=== PATIENT | female | born 1935 | race Caucasian/White ===

== ENCOUNTER 2019-11-26 17:50 | Inpatient (IN) | payer MEDICARE ==
[~2019-11-26 17:50] MED LIST: Iopamidol-370 76% 500 ML 1 ML ONE
[2019-11-26 18:38] LABS: #Basophils 0.1 thou/uL (0.0-0.2); #Eosinphils 0.4 thou/uL (0.0-0.7); #Lymphocytes 3.2 thou/uL (1.20-3.40); #Neutrophils 5.8 thou/uL (1.40-6.50); %Basophils 1.3 % (0.0-1.0); %Eosinophils 3.7 % (0.0-10.0); %Lymphocytes 30.6 % (21.0-51.0); %Monocytes 9.4 % (0.0-10.0); %Neutrophils 55.1 % (42.0-75.0); Hemoglobin 14.6 g/dL (12.0-16.0); Mean Corpuscular HGB CONC 33.7 g/dL (32.0-36.0); Mean Corpuscular Hemoglobin 28.2 pg (27.0-31.0); Mean Corpuscular Volume 83.5 fL (78.0-98.0); Mean Platelet Volume 9.2 fL (7.4-10.4); Platelet Count 270 thou/uL (130-400); RBC Distribution Width 13.6 % (11.5-14.5); Red Blood Cell (RBC) Count 5.17 mill/uL (4.20-5.40); White Blood Cell (WBC) Count 10.6 thou/uL (4.8-10.8)
[2019-11-26] MEDS ORDERED: Aspirin Chewable 81 MG TAB ONE (18:45)
[2019-11-26 18:56] LABS: ALT (SGPT) 8 U/L (8-55); AST (SGOT) 19 U/L (5-34); Albumin 4.3 g/dL (3.4-4.8); Alkaline Phosphatase 64 U/L (40-110); Anion Gap 15 mmol/L (10-20); BUN (Urea Nitrogen) 11 mg/dL (9.8-20.1); Bilirubin, Total 0.6 mg/dL (0.2-1.2); CK (CPK) 156 U/L (29-168); Calc. Creatinine Clearance 0 mL/min (70-130); Calcium 9.3 mg/dL (7.8-10.44); Carbon Dioxide 23 mmol/L (23-31); Chloride 107 mmol/L (98-107); Estimated GFR-MDRD 47; Globulin 3.7 g/dL (2.4-3.5); Glucose 183 mg/dL (83-110); Lipase 25 U/L (8-78); Potassium 4.5 mmol/L (3.5-5.1); Sodium 140 mmol/L (136-145)
--- NOTE | 2019-11-26 19:05 | RAD ---
XR Chest 1 View Portable History: Chest pain Comparison: None. Findings: Heart size is enlarged. Mild pulmonary venous congestion low-grade pulmonary edema. No pneu mothorax. No acute osseous abnormality. Impression: Mild decompensated congestive heart failure.
--- NOTE | 2019-11-26 21:29 | CT ---
CT Aortic Dissection Protocol History: Chest pain Comparison: Radiograph same day Findings: CT angiogram of the chest and abdomen performed after the intravenous ministration of contr ast. 3-D rendering provided. Mild ectasia of the distal transverse aorta measuring up to 2.4 cm. No aortic aneurysm or dissection. Small pleural effusions. Moderate pulmonary edema. No pneumothorax is appreciated although the lung a pices are not included on this protocol exam. No acute osseous abnormality. Celiac trunk and superior mesenteric arteries are patent. Inferior mese nteric artery is patent. Liver, spleen, pancreas, adrenal glands are unremarkable. Scattered parenchymal scarring of both kidn eys. Intraparenchymal 4 mm calculus inferior pole left kidney. Impression: 1. Decompensated congestive heart failure. 2. No aortic dissection. 3. Old right-sided rib fractures. 4. Faint edema within the pancreaticoduodenal groove likely third spacing and much less likely sequel ae of duodenitis or pancreatitis.
[2019-11-26] MEDS ORDERED: Furosemide 40 MG/4 ML VIAL ONE (21:41)
[2019-11-26] MEDS ORDERED: DOBUTamine 500 mg/250 ml 250 ML ONE (21:50)
[2019-11-26] MEDS ORDERED: Nitroglycerin 0.4 MG TAB 1 EACH ONE (21:52)
[2019-11-26] MEDS ORDERED: diphenhydrAMINE 50 MG CAP ONE (22:22)
[2019-11-26] MEDS ORDERED: diphenhydrAMINE 50 MG/ML VIAL ONE (22:23)
--- NOTE | 2019-11-26 22:35 | PDOC.HHP ---
Hospitalist HPI - History of Present Illness chest pain History of Present Illness: Case of an 84y/o female [facility] with pmhx of cad, hx of stroke, atrial fibrillation on eliquis, htn, hypothyroidism, dm and hx of breast ca who comes to hospital due to sob and chest pain. patient refers she was on her usual state of health until yesterday when she started with chest pain and dyspnea, she states took a beta hipolito and her symptoms improved but then again today she started with worsening symptoms for which she came to hospital for evaluation. patient refers her pains is 9/10 restrosternal of crushing quality and radiates to her back. also refers palpitations denies diaphoresis. Hospitalist ROS - Review of Systems All other systems reviewed; all pertinent +/- noted in HPI/Subj Hospitalist History - Past Surgical History Past Surgical History: reports: Appendectomy, Cholecystectomy, Hysterectomy, Tonsillectomy - Family History Family History: reports: cardiac disorder - Social History Smoking Status: Never smoker Alcohol: reports: None Drugs: reports: none - Exam General Appearance: NAD, awake alert Eye: PERRL, anicteric sclera ENT: normocephalic atraumatic, no oropharyngeal lesions Neck: supple, symmetric, no thyromegaly Heart: no murmur, normal peripheral pulses, irregular Respiratory: no wheezes, no ronchi, normal chest expansion, rales Gastrointestinal: soft, non-tender, non-distended, normal bowel sounds Extremities: no cyanosis, no clubbing, 1+ LE edema Skin: normal turgor, no lesions Neurological: cranial nerve grossly intact, normal sensation to touch Musculoskeletal: normal tone, normal strength, no muscle wasting Psychiatric: normal affect, normal behavior, A&O x 3 Hospitalist Results - Labs Result Diagrams: 11/26/19 18:11/26/19 18: Lab results: WBC 10.6 thou/uL (4.8-10.8) 11/26/19 18: Hgb 14.6 g/dL (12.0-16.0) 11/26/19 18: Hct 43.2 % (36.0-47.0) 11/26/19 18: MCV 83.5 fL (78.0-98.0) 11/26/19 18: Plt Count 270 thou/uL (130-400) 11/26/19 18: Neutrophils % 55.1 % (42.0-75.0) 11/26/19 18:27 Sodium 140 mmol/L (136-145) 11/26/19 18:27 Potassium 4.5 mmol/L (3.5-5.1) 11/26/19 18: Chloride 107 mmol/L (98-107) 11/26/19 18: Carbon Dioxide 23 mmol/L (23-31) 11/26/19 18:27 BUN 11 mg/dL (9.8-20.1) 11/26/19 18: Creatinine 1.12 mg/dL (0.6-1.1) H 11/26/19 18: Glucose 183 mg/dL (83-110) H 11/26/19 18: Calcium 9.3 mg/dL (7.8-10.44) 11/26/19 18: Total Bilirubin 0.6 mg/dL (0.2-1.2) 11/26/19 18: AST 19 U/L (5-34) 11/26/19 18: ALT 8 U/L (8-55) 11/26/19 18: Alkaline Phosphatase 64 U/L (40-110) 11/26/19 18: Creatine Kinase 156 U/L (29-168) 11/26/19 18: Troponin I Less than 0.010 ng/mL (< 0.028) 11/26/19 18: Serum Total Protein 8.0 g/dL (6.0-8.3) 11/26/19 18: Albumin 4.3 g/dL (3.4-4.8) 11/26/19 18: Lipase 25 U/L (8-78) 11/26/19 18:27 - Radiology Interpretation CT scan - chest Additional Comment: CT Aortic Dissection Protocol History: Chest pain Comparison: Radiograph same day Findings: CT angiogram of the chest and abdomen performed after the intravenous ministration of contr ast. 3-D rendering provided. Mild ectasia of the distal transverse aorta measuring up to 2.4 cm. No aortic aneurysm or dissection. Small pleural effusions. Moderate pulmonary edema. No pneumothorax is appreciated although the lung a pices are not included on this protocol exam. No acute osseous abnormality. Celiac trunk and superior mesenteric arteries are patent. Inferior mese nteric artery is patent. Liver, spleen, pancreas, adrenal glands are unremarkable. Scattered parenchymal scarring of both kidn eys. Intraparenchymal 4 mm calculus inferior pole left kidney. Impression: 1. Decompensated congestive heart failure. 2. No aortic dissection. 3. Old right-sided rib fractures. 4. Faint edema within the pancreaticoduodenal groove likely third spacing and much less likely sequel ae of duodenitis or pancreatitis. Hospitalist H&P A/P - Problem (1) Acute decompensated heart failure Code(s): I50.9 - HEART FAILURE, UNSPECIFIED Status: Acute (2) Atrial fibrillation with rapid ventricular response Code(s): I48.91 - UNSPECIFIED ATRIAL FIBRILLATION Status: Acute (3) Hypothyroidism Code(s): E03.9 - HYPOTHYROIDISM, UNSPECIFIED Status: Acute (4) Hx TIA/stroke w/o resid Code(s): Z86.73 - PRSNL HX OF TIA (TIA), AND CEREB INFRC W/O RESID DEFICITS Status: Acute (5) Diabetes Code(s): E11.9 - TYPE 2 DIABETES MELLITUS WITHOUT COMPLICATIONS Status: Acute (6) CAD (coronary artery disease) Code(s): I25.10 - ATHSCL HEART DISEASE OF [place] CORONARY ARTERY W/O ANG PCTRS Status: Acute (7) Respiratory failure with hypoxia Code(s): J96.91 - RESPIRATORY FAILURE, UNSPECIFIED WITH HYPOXIA Status: Acute - Plan Plan: 84y/o female who present with D chf with respiratory failure on bipap and afib in rvr D CHF - cxr and cta consistent with dchf - bnp not very high but patient was on visible dyspnea requiring bipap - started on dobutamine drip at the ED, will continue - troponin negative x2 - will continue beta hipolito - will hold acei due to borderline low b/p, start when more stable - icu admit - cardiology consulted - started on lasix 20mg iv q12, ;lasix naive -2 d echo atrial fibrillation - diltiazem iv given at the ED, now out of rvr - continue elliquis - cardiac monitoring - 2d echo - continue rate control with beta hipolito hypoxic respiratory failure - patient presented with decrease 02 and increased RR - started on bipap - electromechanical equipment tester consulted - secondary to d chf hypothyrodism - continue thyroxine - check tsh dm - acc+ ss htn -holding acei until more stable
[2019-11-26 23:00] LABS: Actual Bicarbonate (HCO3a) 22.4 mEq/L (22-28); Analyzer IN Cardio ER; CO2 Tension 41.4 mmHg (35.0-45.0); Calcium, Ionized (arterial) 1.22 mmol/L (1.12-1.30); Carboxyhemoglobin (COHb) 0.2 gm% (0.0-3.0); Hemoglobin (Hb) 14.6 g/dL (12.0-16.0); O2 Tension (PaO2), arterial 78.3 mmHg (> 60.0); Potassium - ABG Lab 4.17 mmol/L (3.70-5.30); pH, Arterial 7.35 (7.35-7.45)
[2019-11-26 23:01] LABS: Puncture Site LRA
[2019-11-26 23:24] LABS: Troponin I Less than 0.010 ng/mL (< 0.028)
[2019-11-26] MEDS ORDERED: HumaLOG 300 UNITS/3 ML VIAL SC PRN (23:50)
[2019-11-26] MEDS ORDERED: Dextrose 5% in Water 1,000 ML IV PRN (23:50)
[2019-11-26] MEDS ORDERED: Dextrose 50% Abboject 50 ML SYRINGE SLOW IVP PRN (23:50)
[2019-11-27 01:44] VITALS: BMI 28.0
[2019-11-27] MEDS ORDERED: DOBUTamine 500 mg/250 ml 500 MG in Premix Bag 1 BAG IVPB SCH (02:15)
[2019-11-27 02:25] LABS: #Basophils 0.1 thou/uL (0.0-0.2); #Eosinphils 0.2 thou/uL (0.0-0.7); #Monocytes 1.2 thou/uL (0.11-0.59); #Neutrophils 7.6 thou/uL (1.40-6.50); %Basophils 0.8 % (0.0-1.0); %Eosinophils 1.7 % (0.0-10.0); %Lymphocytes 24.7 % (21.0-51.0); %Monocytes 9.8 % (0.0-10.0); Hemoglobin 15.1 g/dL (12.0-16.0); Mean Corpuscular HGB CONC 31.9 g/dL (32.0-36.0); Mean Corpuscular Hemoglobin 26.3 pg (27.0-31.0); Mean Corpuscular Volume 82.4 fL (78.0-98.0); Mean Platelet Volume 8.9 fL (7.4-10.4); Platelet Count 260 thou/uL (130-400); RBC Distribution Width 13.6 % (11.5-14.5); Red Blood Cell (RBC) Count 5.77 mill/uL (4.20-5.40)
[2019-11-27 02:49] LABS: Troponin I 0.022 ng/mL (< 0.028)
[2019-11-27 03:09] LABS: ALT (SGPT) 8 U/L (8-55); AST (SGOT) 17 U/L (5-34); Albumin 4.3 g/dL (3.4-4.8); Alkaline Phosphatase 64 U/L (40-110); Anion Gap 19 mmol/L (10-20); BUN (Urea Nitrogen) 12 mg/dL (9.8-20.1); Bilirubin, Total 0.8 mg/dL (0.2-1.2); Calc. Creatinine Clearance 49 mL/min (70-130); Calcium 9.9 mg/dL (7.8-10.44); Carbon Dioxide 21 mmol/L (23-31); Chloride 104 mmol/L (98-107); Estimated GFR-MDRD 54; Globulin 3.8 g/dL (2.4-3.5); Glucose 154 mg/dL (83-110); Magnesium 2.6 mg/dL (1.6-2.6); Potassium 3.9 mmol/L (3.5-5.1); Protein, Total 8.1 g/dL (6.0-8.3); Sodium 140 mmol/L (136-145)
[2019-11-27] MEDS: Furosemide 20 MG/2 ML VIAL SLOW IVP SCH ×2 (06:38→15:19)
[2019-11-27] MEDS: Levothyroxine Sodium 88 MCG TAB PO SCH (06:38)
[2019-11-27] MEDS: Apixaban 5 MG TAB PO SCH ×2 (08:44→20:43)
--- NOTE | 2019-11-27 09:48 | CON ---
DATE OF CONSULTATION: HISTORY OF PRESENT ILLNESS: Radha Hernandez is an 84-year-old female from here [facility], who presented from the intermediate yesterday with chest pain and shortness of breath. She was found to be in rapid atrial fibrillation. In fact, she says she has been in and out of the hospital several times in [facility] for similar problem. She is now apparently on Dobutrex. Heart rate is 120 and regular, saturations are 90%, and respiratory rate of 18. She is not short of breath. She denies any prior history of pneumonia, asthma, or TB exposure. PAST MEDICAL HISTORY: Pertinent mainly for cardiac arrhythmias, atrial fibrillation, coronary artery disease status post stent, and hypertension. Previous apparently CVA and history of breast cancer. PAST SURGICAL HISTORY: Previous surgeries; lumpectomy, appendix, eye surgery, gallbladder surgery, cardiac stent, tonsils, and hysterectomy. ALLERGIES: IODINE AND PENICILLIN. MEDICATIONS: Home medicine; 1. Glipizide 5 .. 2. Sotalol 80. 3. Zestril 10. 4. Synthroid 88. 5. Eliquis 5. REVIEW OF SYSTEMS: Negative. PHYSICAL EXAMINATION: GENERAL: She is awake, alert, and responsive. VITAL SIGNS: Pulse 124, blood pressure 98/80, saturations are 90% on room air, and respiratory rate 22. CHEST: No wheezing. No crackles. CARDIAC: Normal S1 and S2. No gallops. ABDOMEN: Soft. NEUROLOGIC: Awake, alert, and responsive. LABORATORY DATA: White count 1200, H and H 15 and 47, and platelet count is normal. A pO2 of 78, pCO2 of . Lytes are normal. Renal function is normal. Glucose slightly elevated. BNP 360. She had a CT chest dissection protocol done, which showed older fractures. Evidence of maybe CHF. ASSESSMENT AND PLAN: 1. Carotid disease and supraventricular tachycardia. 2. Cardiomyopathy. 3. Hypothyroidism. 4. Hypertension, previous cerebrovascular accident, previous breast cancer, and hypothyroidism. Pulmonary gamble, await input from Cardiology. Pulmonary gamble, not much to add at this stage. She has small pleural effusion on her CT. Once she is stabilized cardiac gamble, she can be transferred out of the ICU. Pulmonary is going to follow while here. Consultation note 70 minutes, 50% direct patient care. Job ID: [id number]
[2019-11-27] MEDS: Sotalol HCl 80 MG TAB PO SCH ×2 (10:05→14:12)
[2019-11-27 14:14] VITALS: BP 102/58
--- NOTE | 2019-11-27 15:16 | PDOC.HOSPP ---
- Subjective Subjective: Patient was seen examined at bedside. She still had variable rate, hovering around 100-120. She is slightly hypotensive but overall improved. She is currently is on Dobutrex at 2.5 - Objective Vital Signs & Weight: Vital Signs (12 hours) Temp Pulse BP Pulse Ox 11/27/19 14:12 111 H 102/58 L 11/27/19 08:00 97.8 F 94 L 11/27/19 04:00 97.2 F L Weight Weight 153 lb 10.595 oz Most Recent Monitor Data Heart Rate from ECG 102 NIBP 115/82 NIBP BP-Mean 93 Respiration from ECG 17 SpO2 94 I&O: 11/26/19 11/27/19 11/28/19 06:59 06:59 06:59 Intake Total 130.1 240 Output Total 700 640 Balance -569.9 -400 Result Diagrams: 11/27/19 02:18 11/27/19 02:18 Additional Labs: Accuchecks 11/27/19 06:40 POC Glucose 136 H Radiology Reviewed by me: Yes EKG Reviewed by me: Yes Hospitalist ROS - Medication Medications: Active Medications Generic Name Dose Route Start Last Admin Trade Name Freq PRN Reason Stop Dose Admin Apixaban 5 mg 11/27/19 09:00 11/27/19 08:44 Apixaban 5 Mg Tab PO 5 mg BID LENI Administration Furosemide 20 mg 11/27/19 06:00 11/27/19 06:38 Furosemide 20 Mg/2 Ml Vial SLOW IVP 20 mg 0600,1400 LENI Administration Levothyroxine Sodium 88 mcg 11/27/19 06:00 11/27/19 06:38 Levothyroxine Sodium 88 Mcg Tab PO 88 mcg 0600 LENI Administration Sotalol HCl 80 mg 11/27/19 09:00 11/27/19 14:12 Sotalol Hcl 80 Mg Tab PO 80 mg BID LENI Administration - Exam General Appearance: NAD Eye: PERRL ENT: normocephalic atraumatic Neck: supple Heart: irregular Respiratory: rhonchi Gastrointestinal: soft Extremities: no cyanosis, 1+ LE edema Skin: normal turgor Neurological: cranial nerve grossly intact Musculoskeletal: normal tone Hosp A/P - Plan This is a pleasant 84 years ago female who has significant past medical history of CAD with status post PCI in 2004, history of CVA, paroxysmal atrial fib on Eliquis, hypertension hypothyroidism, remote histories of breast cancer, who presented to the ED with chest discomfort and worsening dyspnea. Acute hypoxic respiratory failure - secondary to decompensated heart failure --Patient require BiPAP in ED, she is now tolerating nasal cannula --Continue gentle IV diuresis as her blood pressure tolerate --Appreciate pulmonology input Acute on chronic heart failure, unknown type - decompensated d/t uncontrolled rate --Echo pending --cont IV diuresis as her BP tolerates --Pt followed by Dr. Agarwal in [place]. --cardiology consulted Atrial fib with RVR - rate now improved --pt was given Cardizem IVP in ER --cont Sotalol and Eliquis --trop neg x 3. TSH wnl CAD with history of PCI x 1 in 2004 in [place] --BP low, monitor --trop neg x 3 Hypothyroidism --TSH wnl, cont levothyroxine DM 2 - diet control --cont ISS DVT ppx: Eliquis GI ppx: not indicated Code Status: Full Anticipated Dispo: HH vs Rehab once medically stable
--- NOTE | 2019-11-27 19:03 | CON ---
DATE OF CONSULTATION: 11/27/2019 INDICATIONS FOR CONSULTATION: An 84-year-old female with atrial fibrillation with rapid ventricular response. HISTORY OF PRESENT ILLNESS: This is an 84-year-old female who has a history of atrial fibrillation in the past, has been on Betapace. My assumption is that she has intermittent atrial fibrillation. She has been to [facility] a couple of times with atrial fibrillation. She is normally followed by Dr. Usman Agarwal. She also has history of coronary artery disease, underwent angioplasty and stent placement 5 to 7 years ago when she was in [place], I believe. At this time, she is moved back to [place]. Apparently, yesterday, she noticed that she started having some increasing shortness of breath and dyspnea. She also had some rapid heart rate and developed some chest discomfort, which is in the mid lower epigastric retrosternal area. She presented to the hospital for further evaluation and treatment. She was found to be in atrial fibrillation with rapid ventricular response. EKG did not show any acute changes of ischemia. 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 I do not know if her ejection fraction is compromised, but she is on Betapace and I would suspect that perhaps her ejection fraction is not too bad. Her cardiac enzymes were negative for myocardial infarction. Her BNP was only 360, which is mildly elevated, but not critically. At this time, her heart rate is still in the 100 to 120s with atrial fibrillation. Blood pressure is stable. She is in the intensive care unit. We were asked to see her at this time. PAST MEDICAL HISTORY: Significant for: 1. Atrial fibrillation with rapid ventricular response in the past. 2. She has a history of some congestive heart failure in the past. 3. She has a history of coronary artery disease and bypass surgery. 4. She has had an appendectomy. 5. Cholecystectomy. 6. Hysterectomy. 7. Tonsillectomy. 8. She had cataract surgery and bilateral lens implants. SOCIAL HISTORY: She has no history of alcohol or tobacco abuse. She has children who are alive and well. Her son is her power of claims attorney. REVIEW OF SYSTEMS: She says she has had some problems with the left tonsil in the past. This seems to have resolved. She has had also bilateral lens implants. She has some problems with the left ear with crystals and has problems hearing in the left ear. Otherwise, 12-point review of systems is unremarkable except what was noted in the history of present illness. PHYSICAL EXAMINATION: GENERAL: A well-developed, well-nourished female who is in no acute distress. VITAL SIGNS: Her blood pressure is 120/57, heart rates in the 120s to 130s at this time with atrial fibrillation, O2 saturation 96%, respiratory rate is 22, and she is afebrile. HEENT: Shows the head to be normocephalic and atraumatic. Carotid pulses are present without any bruits. CHEST: Bibasilar rales. I do not hear any rhonchi. CARDIOVASCULAR: Irregularly irregular rhythm. There were no gross murmurs noted. She has a very soft systolic murmur at the apex. ABDOMEN: She has obesity with positive bowel sounds. No organomegaly or masses noted. Femoral pulses are present. EXTREMITIES: No clubbing, cyanosis, or edema. Pedal pulses also present. NEUROLOGIC: The patient appears to be fully intact. LABORATORY DATA: Sodium of 140, potassium 3.9, BUN was 12, creatinine 0.98, and her blood sugar was 154. BNP was 360. Cardiac enzymes are negative. TSH was 3.39. Hematology: Her WBC is 12, hemoglobin 15.1, hematocrit 47.5, and platelet count was 260,000. Her blood gases were not significantly abnormal, pH is 7.35, pCO2 of 41.4 with a pO2 of 78.3, and O2 saturation was 95%. 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 IMPRESSION: 1. Atrial fibrillation with rapid ventricular response. We will reinstate her Betapace, which she normally takes at home and will also add diltiazem if necessary. We will try to obtain the records from Dr. Agarwal's office to determine where her ejection fraction is. We can also order an echocardiogram for evaluation of her left ventricular systolic function, I believe it has already been ordered, but I know we will review this later today. Based on the results of the echocardiogram, further recommendations will follow. She is on Eliquis. This is a routine medication for her. 2. History of coronary artery disease and status post stent placement and it appears that she has had a myocardial infarction in the past. We will again review the echocardiogram. There is no indication at this time that we need to proceed with any further evaluations if the enzymes are negative and the EKG does not show any acute changes. 3. Diabetes. This will be dealt with by the primary care service. 4. Hypothyroidism. This will be dealt with by the primary care service. 5. Hypertension, which is under good control at this time and actually somewhat on the low side. We will be more than happy to continue to follow the patient with you. Job ID: [id number]
[2019-11-28] MEDS: Sotalol HCl 80 MG TAB PO SCH ×2 (00:34→08:32)
[2019-11-28] MEDS: Furosemide 20 MG/2 ML VIAL SLOW IVP SCH (06:15)
[2019-11-28] MEDS: Levothyroxine Sodium 88 MCG TAB PO SCH (06:15)
--- NOTE | 2019-11-28 08:16 | PDOC.CPN ---
- Subjective Date: 11/28/19 Time: 08:15 Interval history: No overnight events. Feels better. Denies SOB. Good urine output. Has been up in the chair. - Review of Systems General: denies: fever/chills, weight/appetite/sleep changes, night sweats, fatigue Respiratory: denies: cough, congestion, shortness of breath, exercise intolera nce Cardiovascular: denies: chest pain, palpitation, edema, paroxysmal nocturnal dyspnea, orthopnea Gastrointestinal: denies: nausea, vomiting, diarrhea, constipation, abd pain, GI bleeding Musculoskeletal: denies: pain, tenderness, stiffness, swelling, arthritis/arthralgias Neurological: denies: numbness, syncope, seizure, weakness - Objective Allergies/Adverse Reactions: Allergies Allergy/AdvReac Type Severity Reaction Status Date / Time fish derived Allergy Verified 11/27/19 02:44 iodine Allergy Verified 11/28/19 03:06 penicillin G Allergy Verified 11/28/19 03:06 Visit Medications: Current Medications Apixaban (Apixaban 5 Mg Tab) 5 mg PO BID [facility] Last Admin: 11/27/19 20:43 Dose: 5 mg Documented by: Dextrose/Water (Dextrose 50% Abboject 50 Ml Syringe) 25 gm SLOW IVP PRN PRN PRN Reason: Hypoglycemia Furosemide (Furosemide 20 Mg/2 Ml Vial) 20 mg SLOW IVP 0600,1400 [facility] Last Admin: 11/28/19 06:15 Dose: 20 mg Documented by: Glucagon (Glucagon 1 Mg/Ml Vial) 1 mg IM PRN PRN PRN Reason: Hypoglycemia Dextrose/Water (D5w) 1,000 mls @ 0 mls/hr IV .Q0M PRN PRN Reason: Hypoglycemia Insulin Human Lispro (Humalog 300 Units/3 Ml Vial) 0 units SC .MILD SLIDING SCALE PRN PRN Reason: Mild Correctional Scale Levothyroxine Sodium (Levothyroxine Sodium 88 Mcg Tab) 88 mcg PO 0600 [facility] Last Admin: 11/28/19 06:15 Dose: 88 mcg Documented by: Sotalol HCl (Sotalol Hcl 80 Mg Tab) 80 mg PO BID [facility] Last Admin: 11/28/19 00:34 Dose: Not Given Documented by: Vital Signs & Weight: Vital Signs Temp 11/28/19 04:00 97.8 F 11/28/19 00:00 98.7 F Weight 151 lb 0.266 oz - CHADS-VASc Age >75: 2 Diabetes mellitus: 1 Female: 1 Risk Score: 4 - Quality Measures Condition: Atrial Fibrillation/Flutter (hx or current) CV meds: Beta Leonor: Yes, CAPRICE/ARB: Yes, Statin: No - Physical Exam General: alert & oriented x3 HEENT: normocephaly Neck: midline trachea, no JVD/HJR Cardiac: irregularly regular Lungs: bibasilar rales Neuro: grossly intact Abdomen: active bowel sounds, soft Extremities: 1+ LE edema (ankle edema.) Musculoskeletal: normal range of motion - Labs Result Diagrams: 11/27/19 02:18 11/27/19 02:18 Troponin/CKMB Troponin I 0.022 ng/mL (< 0.028) 11/27/19 02:18 - Telemetry Supraventricular conduction: atrial fibrillation - Assessment/Plan Assessment/Plan: 1. Atrial fib: rate is still not adequately controlled. Continue digoxin. Continue Sotolol.Continue OAC. 2. CHF: Echo indicates EF 25-30%. Waiting on records from Dr. Agarwal office. ? if new onset. Etiology: possible CAD progression. 3. CAD: hx. of stents. Records of which vessel, pending. 4. HTN: well controlled. 5. Hypothyroid 6. Hx. CVA
[2019-11-28] MEDS: Apixaban 5 MG TAB PO SCH (08:29)
[2019-11-28] MEDS ORDERED: Digoxin 0.5 MG/2 ML AMP SLOW IVP SCH (08:30)
[2019-11-28] MEDS ORDERED: Aspirin 81 mg Enteric Coated Tablet PO SCH (09:25)
[2019-11-28] MEDS ORDERED: glipiZIDE 5 MG TAB PO SCH (09:45)
--- NOTE | 2019-11-28 09:57 | PRG ---
DATE OF SERVICE: 11/28/2019 SUBJECTIVE: David was brought this morning, she is better and less short of breath. OBJECTIVE: VITAL SINGS: Pulse 110, irregular. Blood pressure , respiratory rate 18, saturations 98%. CHEST: No wheezing. No crackles. CARDIAC: Normal S1 and S2. No gallops. ASSESSMENT: 1. Coronary artery disease. 2. SVT. 3. Cardiomyopathy. 4. Hypothyroidism. Pulmonary gamble, she is stable. Continue cardiac care. Job ID: [id number]
[2019-11-28 10:41] VITALS: TEMP 98
[2019-11-29] MEDS ORDERED: glipiZIDE 5 MG TAB PO SCH (09:00)
--- NOTE | 2019-11-29 13:14 | DIS ---
DATE OF ADMISSION: 11/27/2019 DATE OF DISCHARGE: 11/28/2019 DISCHARGE DIAGNOSES: 1. Acute hypoxic respiratory failure secondary to decompensated heart failure. 2. Acute on chronic systolic heart failure. 3. Atrial fib with RVR. 4. CAD with history of PCI. 5. Hypothyroidism. 6. Diabetes type 2. CONSULTATIONS: 1. Pulmonology, Dr. Colon. 2. Cardiology, Dr. Morales. PROCEDURES: None. LABORATORY DATA AND IMAGING STUDY: CBC; WBC 12, hemoglobin 15.1, hematocrit 47.5, platelets 260. Chemistry; sodium is 140, potassium 3.9, chloride is 104, carbon dioxide 21, anion gap 19, BUN 12, creatinine 0.99. Troponin negative x3. BNP 360. Imaging study: CTA, decompensated congestive heart failure. No aortic dissection. Chest x-ray, mild decompensated congestive heart failure. 2D echo; EF of 20% to 25%. Normal right ventricular size and function. Trace tricuspid regurgitation. HISTORY OF PRESENT ILLNESS: The patient is an unfortunate 84-year-old female, who lives at [facility] with significant past medical history of CAD with history of PCI, history of CVA, paroxysmal atrial fib, on Eliquis for stroke prophylaxis, hypertension, hypothyroidism, diabetes type 2, history of breast cancer, who presented to ED with complaint of short of breath and chest discomfort. The patient was found in acute hypoxic respiratory failure. She was placed on BiPAP in the ED. She was in atrial fibrillation with RVR. She was slightly hypotensive on admission. Initial workup in the ED including CTA with no evidence of dissection. Her BNP was elevated, as well as radiographic evidence of congestive heart failure. She was subsequently admitted to ICU for close monitor. The patient was started on Dobutrex on admission. She responded well and subsequently came off BiPAP and tolerating 2 L via nasal cannula. Pulmonology as well as Cardiology were consulted. The patient was unhappy with regarding to the fact that her phlebotomy support tech is Dr. Usman Agarwal. She states that she told EMS staff to take her to [facility], however, she ended up here in [place]. At any rate, her echo came back showed that she had an EF of 25%. We obtained records from Dr. Agarwal's office, is pending at the time of discharge. Unfortunately, the patient has been unhappy the fact that she ended up here in the hospital in [place]. She also frustrated with the nursing staff, as her IV keeps blow and she required multiple sticks. She was irritated and subsequently requests to sign out AMA. I came and discussed with the patient with regard to the risks. She initially agreed to stay. However, a couple of hours later, the patient wanted to leave AMA again. She has been not stable for medical discharge. Her phlebotomy support tech was notified. Unfortunately, we spent extended amount of time trying to convince her, however, she is adamant about signing out AMA. The patient end up decided and left AMA. The patient was informed and refused care. The patient is fully aware of the risks of leaving AMA. She is fully competent of making her own decision. The patient was advised to seek immediate medical attention if change in her medical status or change in her decision. The patient verbalized understanding. DISPOSITION: The patient left AMA. Job ID: [id number] MTDD
== END 2019-11-28 11:05 | disposition left against medical advice (07) | DRG 291 ==
LOC: ERS 17:50 → CCU 22:28 → UNDOADMIN 11-27 00:53 → UNDODISIN 11-28 11:05
PROVIDERS: ADMIT Internal Medicine; ATTEND Internal Medicine
DX: I11.0 Hypertensive heart disease with heart failure (principal); J96.01 Acute respiratory failure with hypoxia; I47.1 Supraventricular tachycardia; I50.23 Acute on chronic systolic (congestive) heart failure; I48.0 Paroxysmal atrial fibrillation; I42.9 Cardiomyopathy, unspecified; E11.9 Type 2 diabetes mellitus without complications; I25.10 Atherosclerotic heart disease of native coronary artery without angina pectoris; E03.9 Hypothyroidism, unspecified; Z90.49 Acquired absence of other specified parts of digestive tract; Z90.710 Acquired absence of both cervix and uterus; Z86.73 Personal history of transient ischemic attack (TIA), and cerebral infarction without residual deficits; I25.2 Old myocardial infarction; Z88.0 Allergy status to penicillin; Z79.899 Other long term (current) drug therapy; Z79.01 Long term (current) use of anticoagulants; Z88.6 Allergy status to analgesic agent; Z91.013 Allergy to seafood; Z85.3 Personal history of malignant neoplasm of breast; Z95.5 Presence of coronary angioplasty implant and graft; Z53.29 Procedure and treatment not carried out because of patient's decision for other reasons
CPT/HCPCS: 36415; 36416; 71045; 71275; 74174; 80053; 82550; 82805; 83690; 83735; 83880; 84443; 84484; 85025; 93005; 93306; 94660; 96365; 96366; 96374; 96375; J1160; J1200; J1250; J1940; Q9967

== ENCOUNTER 2020-04-03 07:00 | Inpatient (IN) | payer MEDICARE, MEDICAID ==
[2020-04-03] MEDS ORDERED: Diltiazem 125 MG/25 ML ONE (07:24)
--- NOTE | 2020-04-03 07:40 | RAD ---
EXAM: Single view of the chest HISTORY: Atrial fibrillation COMPARISON: 01/23/2020 FINDINGS: Single view of the chest shows an enlarged but stable cardiomediastinal silhouette. Athero sclerotic calcifications are seen in the aorta. Bibasilar opacities are seen, left greater than right. This could represent atelectasis or infiltrates. No acute osseous abnormality. IMPRESSION: Stable exam
[2020-04-03 07:47] LABS: #Basophils 0.1 thou/uL (0.0-0.2); #Eosinphils 0.4 thou/uL (0.0-0.7); #Lymphocytes 2.4 thou/uL (1.20-3.40); #Monocytes 0.8 thou/uL (0.11-0.59); #Neutrophils 6.1 thou/uL (1.40-6.50); %Basophils 1.1 % (0.0-1.0); %Eosinophils 3.8 % (0.0-10.0); %Lymphocytes 24.4 % (21.0-51.0); %Neutrophils 62.7 % (42.0-75.0); Hemoglobin 13.7 g/dL (12.0-16.0); Mean Corpuscular HGB CONC 32.9 g/dL (32.0-36.0); Mean Corpuscular Hemoglobin 26.9 pg (27.0-31.0); Mean Corpuscular Volume 81.8 fL (78.0-98.0); Mean Platelet Volume 9.2 fL (7.4-10.4); Platelet Count 224 thou/uL (130-400); RBC Distribution Width 15.3 % (11.5-14.5); White Blood Cell (WBC) Count 9.7 thou/uL (4.8-10.8)
[2020-04-03 08:12] LABS: ALT (SGPT) 11 U/L (8-55); AST (SGOT) 32 U/L (5-34); Albumin 4.1 g/dL (3.4-4.8); Alkaline Phosphatase 71 U/L (40-110); Anion Gap 17 mmol/L (10-20); BUN (Urea Nitrogen) 17 mg/dL (9.8-20.1); Bilirubin, Total 0.8 mg/dL (0.2-1.2); CK (CPK) 142 U/L (29-168); Calc. Creatinine Clearance 0 mL/min (70-130); Calcium 9.5 mg/dL (7.8-10.44); Carbon Dioxide 21 mmol/L (23-31); Chloride 106 mmol/L (98-107); Globulin 4.5 g/dL (2.4-3.5); Glucose 182 mg/dL (83-110); Potassium 5.4 mmol/L (3.5-5.1); Protein, Total 8.6 g/dL (5.8-8.1); Sodium 139 mmol/L (136-145)
[2020-04-03] MEDS ORDERED: Furosemide 20 MG/2 ML VIAL ONE ×2 (08:18→14:21)
[2020-04-03] MEDS ORDERED: Acetaminophen 325 MG TAB PO PRN (09:56)
[2020-04-03] MEDS ORDERED: Digoxin 0.5 MG/2 ML AMP SLOW IVP SCH (10:00)
--- NOTE | 2020-04-03 10:05 | PDOC.HHP ---
Hospitalist HPI Shortness of breath History of Present Illness: The patient is an 85-year-old female with past medical history of coronary artery disease, heart failure with ejection fraction, atrial fibrillation on Eliquis, hypothyroidism, and hypertension who presents to the ER today with complaints of worsening shortness of breath over the past week. The patient stated that she was taken off of Lasix by her PCP a week ago and since then she started experiencing gradual worsening in her breathing especially when she lays down. Her symptoms progressed to the point where she was unable to talk in complete sentences which brought her to the ER. In the ED patient was found to be hypoxic and her rhythm was atrial fibrillation with RVR. She was given Lasix and started on diltiazem drip. Allergies/Adverse Reactions: Allergy/AdvReac Type Severity Reaction Status Date / Time fish derived Allergy Verified 11/27/19 02:44 iodine Allergy Verified 11/28/19 03:06 penicillin G Allergy Verified 11/28/19 03:06 Home Medications: Medication Instructions Recorded Confirmed Type Apixaban [Eliquis] 5 mg PO BID 11/27/19 01/25/20 History Levothyroxine Sodium [Synthroid] 88 mcg PO DAILY 11/27/19 01/25/20 History glipiZIDE [Glipizide] 5 mg PO DAILY 11/27/19 01/25/20 History Aspirin [Ecotrin Low Strength] 81 mg PO DAILY tab 12/02/19 01/25/20 Rx Carvedilol [Coreg] 12.5 mg PO BID-WM #60 tab 12/02/19 01/25/20 Rx Diltiazem HCl [Cardizem] 30 mg PO TID #90 tab 01/27/20 Rx Furosemide [Lasix] 40 mg PO BID #60 tab 01/27/20 Rx Potassium Chloride [K-Tab ER] 10 meq PO BID #60 tablet.er 01/27/20 Rx Past History: PMHx: As noted above PSHx: History of breast surgery FHx: Noncontributory for the current presentation Social: Denies alcohol use, smoking, or illicit drug use Hospitalist HPI ROS All other systems reviewed; all pertinent +/- noted in HPI/Subj Hospitalist Exam General Appearance: awake alert ENT: normocephalic atraumatic Neck: supple Heart: no murmur, no gallops, irregular Respiratory: normal chest expansion, no tachypnea, rhonchi Extremities: no cyanosis, no clubbing Neurological: cranial nerve grossly intact, no focal deficits Hospitalist Results Result Diagrams: 04/03/20 07:22 04/03/20 07:22 Lab results: Laboratory Last Values WBC 9.7 thou/uL (4.8-10.8) 04/03/20 07:22 RBC 5.10 mill/uL (4.20-5.40) 04/03/20 07:22 Hgb 13.7 g/dL (12.0-16.0) 04/03/20 07:22 Hct 41.7 % (36.0-47.0) 04/03/20 07:22 MCV 81.8 fL (78.0-98.0) 04/03/20 07: MCH 26.9 pg (27.0-31.0) L 04/03/20 07: MCHC 32.9 g/dL (32.0-36.0) 04/03/20 07: RDW 15.3 % (11.5-14.5) H 04/03/20 07:22 Plt Count 224 thou/uL (130-400) 04/03/20 07:22 MPV 9.2 fL (7.4-10.4) 04/03/20 07:22 Neutrophils % 62.7 % (42.0-75.0) 04/03/20 07: Lymphocytes % 24.4 % (21.0-51.0) 04/03/20 07: Monocytes % 8.0 % (0.0-10.0) 04/03/20 07: Eosinophils % 3.8 % (0.0-10.0) 04/03/20 07: Basophils % 1.1 % (0.0-1.0) H 04/03/20 07:22 Neutrophils # 6.1 thou/uL (1.40-6.50) 04/03/20 07:22 Lymphocytes # 2.4 thou/uL (1.20-3.40) 04/03/20 07:22 Monocytes # 0.8 thou/uL (0.11-0.59) H 04/03/20 07:22 Eosinophils # 0.4 thou/uL (0.0-0.7) 04/03/20 07:22 Basophils # 0.1 thou/uL (0.0-0.2) 04/03/20 07:22 D-Dimer 1.11 *mcg/mL (0.27-0.43) H 04/03/20 07:22 Sodium 139 mmol/L (136-145) 04/03/20 07:22 Potassium 5.4 mmol/L (3.5-5.1) H 04/03/20 07:22 Chloride 106 mmol/L (98-107) 04/03/20 07:22 Carbon Dioxide 21 mmol/L (23-31) L 04/03/20 07:22 Anion Gap 17 mmol/L (10-20) 04/03/20 07:22 BUN 17 mg/dL (9.8-20.1) 04/03/20 07:22 Creatinine 1.12 mg/dL (0.6-1.1) H 04/03/20 07:22 Estimated GFR (MDRD) 47 04/03/20 07:22 Glucose 182 mg/dL (83-110) H 04/03/20 07:22 Calcium 9.5 mg/dL (7.8-10.44) 04/03/20 07:22 Total Bilirubin 0.8 mg/dL (0.2-1.2) 04/03/20 07:22 AST 32 U/L (5-34) 04/03/20 07:22 ALT 11 U/L (8-55) 04/03/20 07:22 Alkaline Phosphatase 71 U/L (40-110) 04/03/20 07:22 Creatine Kinase 142 U/L (29-168) 04/03/20 07:22 Troponin I 0.011 ng/mL (< 0.028) 04/03/20 07:22 B-Natriuretic Peptide 383.4 pg/mL (0-100) H 04/03/20 07:22 Serum Total Protein 8.6 g/dL (5.8-8.1) H 04/03/20 07:22 Albumin 4.1 g/dL (3.4-4.8) 04/03/20 07:22 Globulin 4.5 g/dL (2.4-3.5) H 04/03/20 07:22 Albumin/Globulin Ratio 0.9 g/dL (1.2-2.2) L 04/03/20 07:22 Hospitalist H&P A/P (1) Acute on chronic HFrEF (heart failure with reduced ejection fraction) Code(s): I50.23 - ACUTE ON CHRONIC SYSTOLIC (CONGESTIVE) HEART FAILURE Status: Acute (2) Atrial fibrillation with rapid ventricular response Code(s): I48.91 - UNSPECIFIED ATRIAL FIBRILLATION Status: Acute (3) CAD (coronary artery disease) Code(s): I25.10 - ATHSCL HEART DISEASE OF [place] CORONARY ARTERY W/O ANG PCTRS Status: Acute (4) Diabetes Code(s): E11.9 - TYPE 2 DIABETES MELLITUS WITHOUT COMPLICATIONS Status: Acute (5) Hypothyroidism Code(s): E03.9 - HYPOTHYROIDISM, UNSPECIFIED Status: Acute (6) Respiratory failure with hypoxia Code(s): J96.91 - RESPIRATORY FAILURE, UNSPECIFIED WITH HYPOXIA Status: Acute Qualifiers: Chronicity: acute Qualified Code(s): J96.01 - Acute respiratory failure with hypoxia Plan: The patient will be admitted to telemetry. Supplemental oxygen as needed. 2 g sodium diet. Strict intake and output. 1800 cc fluid restriction. Lasix 40 mg IV twice daily. The patient is currently on diltiazem drip for rate control. Restart her carvedilol and oral diltiazem and try to wean off the drip. Initiate digoxin to improve her relative hypotension. Continue Eliquis. Cardiology consulted.
[2020-04-03 11:32] LABS: Troponin I 0.011 ng/mL (< 0.028)
[2020-04-03] MEDS: Furosemide 40 MG/4 ML VIAL SLOW IVP SCH (14:30)
[2020-04-03 15:35] LABS: Troponin I Less than 0.010 ng/mL (< 0.028)
--- NOTE | 2020-04-03 18:44 | CON ---
DATE OF CONSULTATION: HISTORY OF PRESENT ILLNESS: The patient is an 84-year-old woman, who presents with increasing dyspnea and palpitations. The patient has a long history of congestive heart failure and atrial fibrillation. She has previously undergone PTCA and stent placement in the left circumflex artery. The patient had ischemic stroke in 2018. She has been on chronic anticoagulation since her cerebrovascular accident. The patient has been admitted on several occasions with congestive heart failure and rapid atrial fibrillation. The patient most recently was found to have a marked decrease in her left ventricular systolic function. The patient has declined to have placement of a LifeVest. She presents once again with increasing dyspnea and lower extremity swelling. The patient also reports having palpitations. The patient denies having any chest discomfort. PAST MEDICAL HISTORY: 1. Cardiomyopathy. 2. Coronary artery disease. 3. Atrial fibrillation. 4. CVA. 5. Diabetes mellitus. 6. Dyslipidemia. 7. Breast carcinoma. PAST SURGICAL HISTORY: Breast surgery. ALLERGIES: IODINE, PENICILLIN,and DIGOXIN. MEDICATIONS: On admission include; 1. Eliquis 5 b.i.d. 2. Glipizide 5 daily. 3. Potassium 10 b.i.d. 4. Synthroid 88 mcg daily. 5. Diltiazem 30 t.i.d. 6. Coreg 12.5 b.i.d. 7. Aspirin 81 daily. 8. Lasix 40 b.i.d. SOCIAL HISTORY: Nonsmoker. FAMILY HISTORY: Positive family history of heart disease. REVIEW OF SYSTEMS: No history of easy bruising or bleeding or bright red blood per rectum. The patient denies any fevers or chills. Ten-point system is otherwise unremarkable. PHYSICAL EXAMINATION: GENERAL: Well-developed woman, in mild distress. VITAL SIGNS: Blood pressure 120/82, heart rate was 115. NECK: Showed no jugular venous distention. LUNGS: Have crackles in both bases. HEART: Irregular rate and rhythm. Normal S1 and S2. No murmurs. ABDOMEN: Nondistended. EXTREMITIES: Showed moderate bilateral edema. VASCULAR: Radial pulses are 2+. LABORATORY DATA: Sodium 139, potassium 5.4, chloride 106, bicarbonate 21, BUN 17, creatinine 1.12, glucose 182. Troponin was 0.101. BNP was 383. White blood cell count 9.7, hemoglobin 13.7, hematocrit 41.7, platelets are 224. Her chest x-ray revealed bibasilar opacities, suggestive of edema. IMPRESSION: 1. Congestive heart failure acute on chronic systolic. 2. Rapid atrial fibrillation. 3. History of cardiomyopathy. 4. Coronary artery disease. 5. History of cerebrovascular accident. 6. Hypertension. 7. Diabetes mellitus. This patient presents with congestive heart failure and rapid atrial fibrillation. Her heart rate has been better controlled with IV Cardizem. The patient states she has been compliant with her medications. The patient is being diuresed with IV Lasix. The patient should be on lipid-lowering medication with her history of coronary artery disease and diabetes mellitus. At this time, the patient's potassium is elevated, so we will hold starting spironolactone. We will follow this patient with you through her hospitalization. Job ID: [id number]
[2020-04-03] MEDS ORDERED: Potassium Chloride 20 MEQ TAB ONE (18:45)
[2020-04-03] MEDS ORDERED: Lorazepam 2 MG/ML VIAL SLOW IVP PRN (21:24)
[2020-04-03] MEDS: Apixaban 5 MG TAB PO SCH (21:37)
[2020-04-03] MEDS: Atorvastatin Calcium 20 MG TAB PO SCH (21:37)
[2020-04-03] MEDS: Carvedilol 6.25 MG TAB PO SCH (21:42)
[2020-04-03] MEDS: Potassium Chloride 10 MEQ TAB PO SCH (21:43)
[2020-04-03] MEDS ORDERED: Diltiazem 125 MG in Sodium Chloride 0.9% 100 ML IVPB SCH (22:00)
[2020-04-03 22:58] VITALS: BMI 27.3
[2020-04-04 04:47] LABS: #Eosinphils 0.2 thou/uL (0.0-0.7); #Lymphocytes 2.4 thou/uL (1.20-3.40); #Monocytes 1.1 thou/uL (0.11-0.59); #Neutrophils 7.1 thou/uL (1.40-6.50); %Basophils 0.3 % (0.0-1.0); %Eosinophils 2.3 % (0.0-10.0); %Lymphocytes 22.1 % (21.0-51.0); %Monocytes 10.1 % (0.0-10.0); %Neutrophils 65.2 % (42.0-75.0); Hemoglobin 12.7 g/dL (12.0-16.0); Mean Corpuscular HGB CONC 34.6 g/dL (32.0-36.0); Mean Corpuscular Hemoglobin 27.8 pg (27.0-31.0); Mean Corpuscular Volume 80.6 fL (78.0-98.0); Mean Platelet Volume 8.9 fL (7.4-10.4); Platelet Count 197 thou/uL (130-400); Red Blood Cell (RBC) Count 4.56 mill/uL (4.20-5.40); White Blood Cell (WBC) Count 10.8 thou/uL (4.8-10.8)
[2020-04-04] MEDS: Levothyroxine Sodium 88 MCG TAB PO SCH (04:58)
[2020-04-04] MEDS: Furosemide 40 MG/4 ML VIAL SLOW IVP SCH ×2 (04:58→13:51)
[2020-04-04 05:06] LABS: Anion Gap 17 mmol/L (10-20); BUN (Urea Nitrogen) 19 mg/dL (9.8-20.1); Calc. Creatinine Clearance 47 mL/min (70-130); Calcium 9.6 mg/dL (7.8-10.44); Carbon Dioxide 24 mmol/L (23-31); Chloride 103 mmol/L (98-107); Glucose 135 mg/dL (83-110); Potassium 3.7 mmol/L (3.5-5.1); Sodium 140 mmol/L (136-145)
[2020-04-04] MEDS: Aspirin 81 mg Enteric Coated Tablet PO SCH (08:15)
[2020-04-04] MEDS: Potassium Chloride 10 MEQ TAB PO SCH ×2 (08:15→16:21)
[2020-04-04] MEDS: glipiZIDE 5 MG TAB PO SCH (08:15)
[2020-04-04] MEDS ORDERED: Digoxin 0.125 MG TAB PO SCH ×2 (09:00→11:00)
[2020-04-04] MEDS: Carvedilol 6.25 MG TAB PO SCH ×2 (09:24→16:21)
[2020-04-04] MEDS: Apixaban 5 MG TAB PO SCH ×2 (09:24→21:15)
--- NOTE | 2020-04-04 15:45 | PDOC.HOSPP ---
- Subjective Encounter Date: 04/04/20 Encounter Time: 09:00 Subjective: F/u: CHF, afib The patient feels much better and is not as short of breath. She doesn't wear oxygen at home. She was told by paramedics that they thought she was about to have a cardiac arrest arabella her heart rate was so fast. Oxygen sat was 94% on 1.5L She was taking lasix 40 mg bid at home, but stopped it last week because her PCP told her she doesn't need it. However her lead architect Dr. Coto told her to take it prior to that. She was taking coreg TID at home as well She has had multiple attacks in the past two months of CHF and afib, even though she is compliant with her medication and her children do not cook with salt The patient wants to ambulate, is tired of laying in bed. She uses a walker at home - Objective Vital Signs & Weight: Vital Signs (12 hours) Temp Pulse Resp BP BP Pulse Ox 04/04/20 11:14 74 04/04/20 11:10 98.4 F 83 18 108/55 L 92 L 04/04/20 09:24 121/57 L 04/04/20 08:10 98.3 F 74 16 95/59 L 94 L Weight Weight 149 lb 14.4 oz I&O: 04/03/20 04/04/20 04/05/20 06:59 06:59 06:59 Intake Total 155 Output Total 600 Balance 155 -600 Result Diagrams: 04/04/20 04:07 04/04/20 04:07 Hospitalist ROS - Review of Systems Constitutional: denies: fever, chills - Medication Medications: Active Medications Generic Name Dose Route Start Last Admin Trade Name Freq PRN Reason Stop Dose Admin Apixaban 5 mg 04/03/20 21:00 04/04/20 09:24 Apixaban 5 Mg Tab PO 5 mg BID LENI Administration Aspirin 81 mg 04/04/20 09:00 04/04/20 08:15 Aspirin 81 Mg Enteric Coated Tablet PO 81 mg DAILY LENI Administration Atorvastatin Calcium 20 mg 04/03/20 21:00 04/03/20 21:37 Atorvastatin Calcium 20 Mg Tab PO 20 mg HS LENI Administration Carvedilol 12.5 mg 04/03/20 17:00 04/04/20 09:24 Carvedilol 6.25 Mg Tab PO 12.5 mg BID-WM LENI Administration Furosemide 40 mg 04/03/20 14:00 04/04/20 13:51 Furosemide 40 Mg/4 Ml Vial SLOW IVP 40 mg 0600,1400 LENI Administration Glipizide 5 mg 04/04/20 09:00 04/04/20 08:15 Glipizide 5 Mg Tab PO 5 mg DAILY LENI Administration Levothyroxine Sodium 88 mcg 04/04/20 06:00 04/04/20 04:58 Levothyroxine Sodium 88 Mcg Tab PO 88 mcg 0600 LENI Administration Potassium Chloride 10 meq 04/03/20 17:00 04/04/20 08:15 Potassium Chloride 10 Meq Tab PO 10 meq BID- LENI Administration Hospitalist Exam Vitals: Vital Signs (12 hours) Temp Pulse Resp BP BP Pulse Ox 04/04/20 11:14 74 04/04/20 11:10 98.4 F 83 18 108/55 L 92 L 04/04/20 09:24 121/57 L 04/04/20 08:10 98.3 F 74 16 95/59 L 94 L Weight Weight 149 lb 14.4 oz General Appearance: NAD, awake alert Eye: PERRL, anicteric sclera ENT: normocephalic atraumatic, no oropharyngeal lesions Neck: no JVD Heart: RRR, no murmur, no gallops, no rubs Respiratory: no wheezes, no rales, no ronchi Respiratory - other findings: crackles on left side Gastrointestinal: soft, non-tender, non-distended, normal bowel sounds Extremities: no cyanosis, no clubbing, no edema Skin: normal turgor, no lesions, no rashes Neurological: cranial nerve grossly intact, normal sensation to touch, no weakness Musculoskeletal: normal tone, normal strength, no muscle wasting Hosp A/P - Plan Chest X ray: bibasilar opacities, left greater than right This is an 84 yea rold female who presented with increasing SOB and leg swelling, admitted for possible CHF CHF exacerbation - continue 40 mg lasix IV bid. Chest X ray showed bibasilar opacities - troponin negative times three. Cardiology is on board. Continue to wean oxygen to maintain sat 92% - PT evaluation Hyperkalemia - resolved, potassium down to 5.4 Atrial fibrillation - continue home diltiazem and metoprolol - continue eliquis Hypothyroidism - continue levothyroxine Type II Diabetes - continue glipizide
[2020-04-04] MEDS: Atorvastatin Calcium 20 MG TAB PO SCH (21:15)
[2020-04-04] MEDS: Diltiazem HCl SR 90 mg Capsule PO SCH (21:15)
[2020-04-05] MEDS: Levothyroxine Sodium 88 MCG TAB PO SCH (05:30)
[2020-04-05] MEDS: Furosemide 40 MG/4 ML VIAL SLOW IVP SCH ×2 (05:30→15:20)
[2020-04-05 08:45] LABS: Anion Gap 16 mmol/L (10-20); BUN (Urea Nitrogen) 17 mg/dL (9.8-20.1); Calc. Creatinine Clearance 47 mL/min (70-130); Calcium 9.8 mg/dL (7.8-10.44); Carbon Dioxide 28 mmol/L (23-31); Chloride 97 mmol/L (98-107); Glucose 160 mg/dL (83-110); Potassium 3.6 mmol/L (3.5-5.1); Sodium 137 mmol/L (136-145)
[2020-04-05 08:54] LABS: Magnesium 1.9 mg/dL (1.6-2.6)
[2020-04-05] MEDS ORDERED: Digoxin 0.125 MG TAB PO SCH (09:00)
[2020-04-05] MEDS: Diltiazem HCl SR 90 mg Capsule PO SCH (09:24)
[2020-04-05] MEDS: Aspirin 81 mg Enteric Coated Tablet PO SCH (09:24)
[2020-04-05] MEDS: glipiZIDE 5 MG TAB PO SCH (09:24)
[2020-04-05] MEDS: Potassium Chloride 10 MEQ TAB PO SCH (09:24)
[2020-04-05] MEDS: Apixaban 5 MG TAB PO SCH (09:24)
[2020-04-05] MEDS: Carvedilol 6.25 MG TAB PO SCH (09:25)
[2020-04-05 16:32] VITALS: BP 166/100; TEMP 97.8
--- NOTE | 2020-04-05 17:19 | PDOC.DS.DS ---
Provider Date of Admission: 04/03/20 09:21 Date of Discharge: 04/05/20 Admitting Provider: Lito Leger MD Consultations: Cardiology Primary Care Physician: Isaak Montesinos MD Course Hospital Course: Discharge Diagnoses: 1. Acute CHF exacerbation 2. Hyperkalemia 3. Atrial fibrillation 4. Hypothyroidism 5. Type II diabetes Brief HPI: This is an 84 year old female with past medical history of CHF who presented to the hospital with shortness of breath and leg swelling. Her diuretics were discontinued by her PCP last week. She presented with a heart rate of 113, rest of vitals were normal. She was taking 40 mg lasix bid before that. Chest Xray showed opacities bilaterally. She was also in afib with RVR and started on diltiazem drip and admitted. Hospital Course: Acute CHF exacerbation: the patient was started on IV lasix 40 mg bid. Troponins were normal x 3. She did require oxygen up to 2L while in the hospital. She was weaned down to room air and ambulatory oxygen showed 95% on room air. She was resumed on oral lasix 40 mg bid. She should follow up with her research and development tester in a week. Atrial fibrillation: she was placed on a diltiazem drip . She was converted to oral diltiazem 90 mg bid and continued on her home coreg dose. Her rate remained controlled. Hyperkalemia: her potassium was 5.4 which normalized after lasix administration Pertinent Studies: ChestX ray: bibasilar opacities left greater than right Lab Results: 04/04/20 04:07 04/05/20 08:02 Abnormal Lab Results - Last 48 hrs 04/04/20 04:07: RDW 15.0 H, Monocytes % 10.1 H, Neutrophils # 7.1 H, Monocytes # 1.1 H 04/04/20 04:07: TSH 3rd Generation 5.5946 H 04/05/20 08:02: Chloride 97 L Vitals: Vital Signs (12 hours) Temp Pulse Resp BP Pulse Ox 04/05/20 16:00 97.8 F 108 H 16 166/100 H 95 04/05/20 12:00 97.2 F L 85 16 148/64 H 94 L 04/05/20 08:00 97.5 F L 89 17 154/63 H 96 Weight Weight 149 lb 14.4 oz Physical Exam: The patient was seen and examined on the day of discharge. General Appearance: NAD, awake alert Eye: PERRL, anicteric sclera ENT: normocephalic atraumatic, no oropharyngeal lesions Neck: no JVD Respiratory: CTAB, no wheezes, no rales, no ronchi Cardiovascular: RRR, no murmur, no gallops, no rubs Gastrointestinal: soft, non-tender, non-distended, normal bowel sounds Extremities: no cyanosis, no clubbing, no edema Skin: normal turgor, no lesions, no rashes Neurological: cranial nerve grossly intact, normal sensation to touch, no weakness, no focal deficits, no new deficit Musculoskeletal: normal tone, normal strength, no muscle wasting Problem Time Spent in discharge related activities (mins): 30 Plan Prescriptions: Diltiazem HCl [Cardizem SR] 90 mg PO BID #60 cap Furosemide [Lasix] 40 mg PO BID #60 tab Home Medications: Medication Instructions Recorded Confirmed Type Apixaban [Eliquis] 5 mg PO BID 11/27/19 04/03/20 History Levothyroxine Sodium [Synthroid] 88 mcg PO DAILY 11/27/19 04/03/20 History glipiZIDE [Glipizide] 5 mg PO DAILY 11/27/19 04/03/20 History Aspirin [Ecotrin Low Strength] 81 mg PO DAILY tab 12/02/19 04/03/20 Rx Potassium Chloride [K-Tab ER] 10 meq PO BID #60 tablet.er 01/27/20 04/03/20 Rx Carvedilol [Coreg] 12.5 mg PO BID 04/03/20 04/03/20 History Diltiazem HCl [Cardizem SR] 90 mg PO BID #60 cap 04/05/20 Rx Furosemide [Lasix] 40 mg PO BID #60 tab 04/05/20 Rx Allergies: digoxin Allergy (Verified 04/04/20 11:13) fish derived Allergy (Verified 11/27/19 02:44) iodine Allergy (Verified 11/28/19 03:06) penicillin G Allergy (Verified 11/28/19 03:06) Activity:: Activity as Tolerated Nourishment:: Heart Healthy Diet Referrals: Raciel Lerner MD [Active] - 7 Days (CALL AND SCHEDULE FOLLOW UP APPT TO SEE DR LERNER IN 1 WEEK. ) Isaak Montesinos MD [Primary Care Provider] - 7 Days (CALL AND SCHEDULE FOLLOW UP APPT TO SEE DR MONTESINOS IN 1 WEEK. UNABLE TO SCHEDULE APPT PRIOR TO DISCHARGE DUE TO OFFICE CLOSED DUE TO WEATHER. ) Disposition: HOME Quality CORE MEASURES:: N/A
--- NOTE | 2020-04-06 05:03 | PQF ---
CLINICAL DOCUMENTATION CLARIFICATION FORM: Dear : Ngoc Burdick Date / Time: 04/06/2020 0502 Please exercise your independent, professional judgment in responding to the clarification form. Clinical indicators are provided on the bottom of this form for your review Please check appropriate box(es): [ X ] Acute Respiratory Failure with Hypoxia [ ] Respiratory failure with hypoxia unspecified [ ] Hypoxia only [ ] Other diagnosis, please specify [ ] Unable to determine Physician Signature: Date/Time: For continuity of documentation, please document condition throughout progress notes and discharge summary. Thank You. To be completed by CDI/Coding staff for physician review: Present Clinical Indicators - Signs / Symptoms / Labs Results and Location in Medical Record [x] O2 Sat 92%; 94%; 92% 93% 94% Vital signs 04/03-04/05 [x] BP 120/94, Pulse 113, Resp 22, Temp 98.2 Vital signs 04/03 [x] I suspect her hypoxia is secondary to pulmonary edema ED notes p10 04/03 [x] Complaints of worsening shortness of breath over the past week H&P p1 04/03 Dr Leger [x] Respiratory failure with hypoxia H&P p4 04/03 Dr Leger [x] Chest Xray: This could represent atelectasis or infiltrates Chest Xray 04/03 Present Risk Factors Results and Location in Medical Record [x] 84 year-old Female H&P p1 04/03 Dr Leger [x] CAD H&P p1 04/03 Dr Leger [x] HTN H&P p1 04/03 Dr Leger [x] CHF H&P p1 04/03 Dr Leger Present Treatments Results and Location in Medical Record [x] Oxygen 3L Respiratory panel 04/03 [x] Admitted to telemetry H&P p4 04/03 Dr Leger CDS/Employee Relations Consultant Signature: Elaine Adams Phone #: [phone] Date/Time: 04/06/20 0502 Acute Respiratory Failure: ABG pH < 7.35 or > 7.45; Decreased oxygen saturation (<90% room air or < 95% on oxygen); PCO2 > 50 mm Hg; PO2 < 60 mm Hg; Labored or rapid respirations ARDS: Dx Criteria [[place] ARDS]: Respiratory symptoms within one week of a known clinical insult (e.g. shock, infection, surgery, trauma) Bilateral opacities in CXR/Chest CT not due to CHF or fluid This is a permanent part of the Medical Record MTDD
--- NOTE | 2020-04-07 15:53 | EKG ---
Test Reason : Blood Pressure : / mmHG Vent. Rate : 128 BPM Atrial Rate : 119 BPM P-R Int : 000 ms QRS Dur : 116 ms QT Int : 350 ms P-R-T Axes : 000 112 -59 degrees QTc Int : 511 ms Atrial fibrillation with rapid ventricular response Right axis deviation Septal infarct , age undetermined Abnormal ECG Confirmed by KOSTA BUSCH ([id number]), editor publications EDGARD GONSALVES ([id number]) on 04/07/2020 3:53:07 PM Referred By: Confirmed By:KOSTA BUSCH
--- NOTE | 2020-04-07 15:53 | EKG ---
Test Reason : Blood Pressure : / mmHG Vent. Rate : 100 BPM Atrial Rate : 125 BPM P-R Int : 000 ms QRS Dur : 120 ms QT Int : 326 ms P-R-T Axes : 000 072 190 degrees QTc Int : 420 ms Atrial fibrillation Low voltage QRS Possible Anterolateral infarct , age undetermined Abnormal ECG Confirmed by KOSTA BUSCH ([id number]), metropolitan editor EDGARD GONSALVES ([id number]) on 04/07/2020 3:53:10 PM Referred By: Confirmed By:KOSTA BUSCH
== END 2020-04-05 16:50 | disposition home or self-care (01) | DRG 291 ==
LOC: ERS 07:00 → ERHOLD 09:21 → 2NO 19:29
PROVIDERS: ADMIT Internal Medicine; ATTEND Internal Medicine
DX: I11.0 Hypertensive heart disease with heart failure (principal); J96.01 Acute respiratory failure with hypoxia; I48.91 Unspecified atrial fibrillation; I50.23 Acute on chronic systolic (congestive) heart failure; E87.5 Hyperkalemia; I42.9 Cardiomyopathy, unspecified; E03.9 Hypothyroidism, unspecified; I25.10 Atherosclerotic heart disease of native coronary artery without angina pectoris; E78.5 Hyperlipidemia, unspecified; I95.9 Hypotension, unspecified; E11.9 Type 2 diabetes mellitus without complications; Z88.8 Allergy status to other drugs, medicaments and biological substances; Z91.041 Radiographic dye allergy status; Z88.0 Allergy status to penicillin; Z91.013 Allergy to seafood; I25.2 Old myocardial infarction; Z85.3 Personal history of malignant neoplasm of breast; Z90.49 Acquired absence of other specified parts of digestive tract; Z90.710 Acquired absence of both cervix and uterus; Z79.890 Hormone replacement therapy; Z79.01 Long term (current) use of anticoagulants; Z79.84 Long term (current) use of oral hypoglycemic drugs; Z79.82 Long term (current) use of aspirin; Z86.73 Personal history of transient ischemic attack (TIA), and cerebral infarction without residual deficits
CPT/HCPCS: 36415; 71045; 80048; 80053; 82550; 83735; 83880; 84443; 84484; 85025; 85379; 93005; 96365; 96366; 96375; 96376; J1940

== ENCOUNTER 2023-08-18 05:08 | Inpatient (IN) | payer OTHER ==
[2023-08-18] MEDS ORDERED: fentaNYL 50 mcg/mL 1 mL Vial ONE ×2 (05:24→05:40)
[2023-08-18] MEDS ORDERED: Ondansetron PF 4 MG/2 ML Vial ONE (05:31)
[2023-08-18] MEDS ORDERED: Magnesium 2 GM/50 ML BAG (IN WATER) ONE (05:35)
[2023-08-18 05:44] LABS: #Basophils 0.12 10x3/uL (0.0-0.2); %Basophils 1.3 % (0.0-1.0); %Eosinophils 4.6 % (0.0-10.0); %Lymphocytes 37.8 % (21.0-51.0); %Monocytes 10.1 % (0.0-10.0); %Neutrophils 45.8 % (42.0-75.0); Hematocrit 42.2 % (36.0-47.0); Hemoglobin 14.1 g/dL (12.0-16.0); Mean Corpuscular HGB CONC 33.4 g/dL (32.0-36.0); Mean Corpuscular Hemoglobin 26.9 pg (27.0-31.0); Mean Corpuscular Volume 80.5 fL (78.0-98.0); Mean Platelet Volume 10.7 fL (7.4-10.4); Platelet Count 273 10x3/uL (130-400); RBC Distribution Width 15.5 % (11.5-14.5); Red Blood Cell (RBC) Count 5.24 mill/uL (4.20-5.40)
[2023-08-18 05:57] LABS: INR-International Normal Ratio 1.1; Prothrombin Time 14.2 sec (12.0-14.7)
[2023-08-18 05:58] LABS: ALT (SGPT) 9 U/L (8-55); AST (SGOT) 19 U/L (5-34); Albumin 3.6 g/dL (3.4-4.8); Alkaline Phosphatase 53 U/L (40-110); Anion Gap 17 mmol/L (10-20); BUN (Urea Nitrogen) 16 mg/dL (9.8-20.1); Bilirubin, Total 0.4 mg/dL (0.2-1.2); Calc. Creatinine Clearance 0 mL/min (70-130); Carbon Dioxide 22 mmol/L (23-31); Chloride 103 mmol/L (98-107); Estimated GFR 62; Globulin 4.1 g/dL (2.4-3.5); Glucose 229 mg/dL (83-110); Lipase 15 U/L (8-78); Magnesium 1.8 mg/dL (1.6-2.6); Potassium 3.7 mmol/L (3.5-5.1); Protein, Total 7.7 g/dL (5.8-8.1); Sodium 138 mmol/L (136-145)
[2023-08-18 06:52] LABS: Troponin I 0.079 ng/mL (< 0.028)
[2023-08-18 07:22] LABS: Free T4 (Free Thyroxine) 0.89 ng/dL (0.70-1.48)
[2023-08-18] MEDS ORDERED: Morphine 4 MG/ML VIAL SLOW IVP PRN (08:33)
[2023-08-18] MEDS ORDERED: Acetaminophen 650 MG Suppository PR PRN (08:33)
[2023-08-18] MEDS ORDERED: Ondansetron ODT 4 MG TAB PO PRN (08:33)
[2023-08-18] MEDS ORDERED: Acetaminophen 325 MG TAB PO PRN (08:33)
[2023-08-18] MEDS ORDERED: Morphine 2 MG/ML VIAL SLOW IVP PRN (08:33)
[2023-08-18] MEDS ORDERED: Ondansetron PF 4 MG/2 ML Vial IVP PRN (08:33)
[2023-08-18] MEDS ORDERED: Mag-Al Plus 1200/1200/120 MG (30 mL) UDCUP PO PRN (08:35)
[2023-08-18] MEDS ORDERED: Glucagon 1 MG/ML KIT IM PRN (08:42)
[2023-08-18] MEDS ORDERED: Dextrose 50% Abboject 50 ML SYRINGE SLOW IVP PRN (08:42)
[2023-08-18] MEDS ORDERED: Dextrose 5% in Water 1,000 ML IV PRN (08:42)
[2023-08-18] MEDS ORDERED: Insulin Lispro 100 UNIT/ML 10 ML VIAL SC PRN (08:48)
[2023-08-18] MEDS ORDERED: Clopidogrel Bisulfate 75 MG TAB ONE (09:35)
[2023-08-18] MEDS ORDERED: Apixaban 5 MG TAB ONE (09:35)
[2023-08-18] MEDS ORDERED: Pantoprazole 40 MG VIAL ONE (09:35)
[2023-08-18] MEDS ORDERED: Morphine 2 MG/ML VIAL ONE (09:35)
[2023-08-18] MEDS ORDERED: Aspirin Chewable 81 MG TAB ONE (09:37)
[2023-08-18] MEDS ORDERED: Aspirin 81 mg Enteric Coated Tablet ONE (09:41)
[2023-08-18] MEDS: Morphine 2 MG/ML VIAL SLOW IVP SCH (09:57)
[2023-08-18] MEDS: dilTIAZem SR 90 MG CAP PO SCH (09:59)
[2023-08-18] MEDS: Apixaban 5 MG TAB PO SCH (09:59)
[2023-08-18] MEDS: Clopidogrel Bisulfate 75 MG TAB PO SCH (09:59)
[2023-08-18] MEDS: Aspirin 81 mg Enteric Coated Tablet PO SCH (09:59)
[2023-08-18] MEDS: Pantoprazole 40 MG VIAL IVP SCH (10:00)
[2023-08-18] MEDS: Empagliflozin 10 MG TAB PO SCH (10:00)
[2023-08-18 12:38] LABS: Troponin I 1.261 ng/mL (< 0.028)
[2023-08-18 13:15] VITALS: TEMP 98.1
[2023-08-18] MEDS ORDERED: Atorvastatin Calcium 40 MG TAB PO SCH (21:00)
[2023-08-19] MEDS ORDERED: Levothyroxine Sodium 100 MCG TAB PO SCH (06:00)
== END 2023-08-18 08:14 | disposition still patient (30) | DRG 282 ==
LOC: ERS 05:08 → ERHOLD 08:14
PROVIDERS: ADMIT Family Medicine; ATTEND Family Medicine
DX: I21.4 Non-ST elevation (NSTEMI) myocardial infarction (principal); I48.0 Paroxysmal atrial fibrillation; I25.10 Atherosclerotic heart disease of native coronary artery without angina pectoris; I10 Essential (primary) hypertension; E11.9 Type 2 diabetes mellitus without complications; I44.7 Left bundle-branch block, unspecified; E03.9 Hypothyroidism, unspecified; Z85.3 Personal history of malignant neoplasm of breast; Z91.013 Allergy to seafood; Z88.0 Allergy status to penicillin; Z79.82 Long term (current) use of aspirin; Z79.899 Other long term (current) drug therapy; Z79.890 Hormone replacement therapy; Z79.84 Long term (current) use of oral hypoglycemic drugs; Z90.49 Acquired absence of other specified parts of digestive tract; Z90.89 Acquired absence of other organs; Z90.710 Acquired absence of both cervix and uterus
CPT/HCPCS: 36416; 71045; 80053; 83690; 83735; 83880; 84439; 84443; 84481; 84484; 85025; 85610; 85730; 93005; 96374; 96375; C9113; J1815; J2272; J2405; J3010; J3475